=== PATIENT | male | born 1955 ===

== ENCOUNTER 2017-08-05 10:03 | Emergency (ER) | payer MEDICAID ==
[2017-08-05 10:04] VITALS: BMI 18.3
[2017-08-05 10:31] VITALS: BP 160/87; PULSE 68; RESP 18; TEMP 97.9; O2SAT 98
--- NOTE | 2017-08-05 11:20 | C.PDOC ---
History Of Present Illness 61 year old male, with PMHx of PVD and DVT, presents to ED for evaluation of sharp right foot pain, notes he has had this pain intermittently for the last 2 months, each episode lasting about 2 minutes but notes that pain lasted for longer duration last night. Patient was scheduled for stent to his right leg 2 days ago but did not have the surgery because according to patient, he was placed NPO for too long and therefore could not do it. Pt has history of 2 stents in the left leg. Pt admits to drinking alcohol today. Denies trauma or any new symptoms. Time Seen by Provider: 08/05/17 10:40 Chief Complaint (Nursing): Lower Extremity Problem/Injury History Per: Patient History/Exam Limitations: no limitations Onset/Duration Of Symptoms: Days (2 months), Intermittent Episodes Current Symptoms Are (Timing): Still Present Recent travel outside of the [place]: No Additional History Per: Patient Past Medical History Reviewed: Historical Data, Nursing Documentation, Vital Signs Vital Signs: Last Vital Signs Temp 97.9 F 08/05/17 10:30 Pulse 68 08/05/17 10:30 Resp 18 08/05/17 10:30 BP 160/87 H 08/05/17 10:30 Pulse Ox 98 08/05/17 12:50 - Medical History PMH: Bronchitis, Deep Vein Thrombosis (left leg), Fractures (left foot (CASTED ONLY)), Gastritis, HTN, Hypercholesterolemia, Pneumonia (x2 6-7 years ago) Denies: Chronic Kidney Disease Surgical History: Appendectomy, Tonsillectomy - [facility] Procedures ANGIOPLASTY OF OTHER NON-CORONARY VESSEL(S) (03/12/15) ATHERECTOMY OF OTHER NON-CORONARY VESSEL(S) (03/12/15) INSEJ [id number] PERIPHERAL NON-CORONARY VES STENT(S) (03/12/15) INSERTION OF ONE VASCULAR STENT (03/12/15) OTH & OPEN REPAIR DIRECT INGUINAL HERNIA W GRAFT OR PROSTH (10/04/13) PROCEDURE ON SINGLE VESSEL (03/12/15) Family History: States: Diabetes - Social History Hx Tobacco Use: Yes Hx Alcohol Use: Yes Hx Substance Use: Yes ("weed once in a while") - Immunization History Hx Tetanus Toxoid Vaccination: No Hx Influenza Vaccination: No Hx Pneumococcal Vaccination: No Review Of Systems Except As Marked, All Systems Reviewed And Found Negative. Constitutional: Negative for: Fever, Chills Cardiovascular: Negative for: Chest Pain, Palpitations Respiratory: Negative for: Shortness of Breath Musculoskeletal: Positive for: Foot Pain (right) Neurological: Negative for: Weakness, Numbness, Headache Physical Exam - Physical Exam Appears: Non-toxic, No Acute Distress Skin: Normal Color, Warm, Dry Head: Atraumatic, Normacephalic Eye(s): bilateral: Normal Inspection, EOMI Nose: Normal Oral Mucosa: Moist Neck: Supple Chest: Symmetrical Cardiovascular: Rhythm Regular Respiratory: No Accessory Muscle Use Extremity: Normal ROM (FROM of right leg), No Tenderness, No Pedal Edema, Capillary Refill (<2 secs.), No Deformity, No Swelling Extremity: Bilateral: Atraumatic, Normal Color And Temperature, Normal ROM Pulses: Left Dorsalis Pedis: Normal, Right Dorsalis Pedis: Normal Neurological/Psych: Oriented x3, Normal Speech, Normal Motor, Normal Sensation ED Course And Treatment O2 Sat by Pulse Oximetry: 98 (RA) Pulse Ox Interpretation: Normal Progress Note: Spoke with Dr. Castano who evaluated patient at bedside, instructed to discharge patient with outpatient follow up. Pt left from ER from prior to re-evaluation and discharge. Disposition - Disposition Referrals: Shaik Lima MD [Staff Provider] - Arnoldo Castano Jr., MD [Staff Provider] - Disposition: LEFT W/O BEING SEEN - ER ONLY Disposition Time: 11:19 Condition: STABLE Additional Instructions: Follow up with your primary medical doctor or clinic in 2-5 days for further evaluation. Return to the emergency department at any time if symptoms persist or worsen. Instructions: Peripheral Vascular Disease (ED) Forms: [facility] (Azeri) - Clinical Impression Clinical Impression: Peripheral vascular disease, Chronic leg pain - PA / MANAGER CL[facility] / Resident Statement MD/DO has reviewed & agrees with the documentation as recorded. - Scribe Statement The provider has reviewed the documentation as recorded by the Rolandoibe Colleen Wallace All medical record entries made by the Scribe were at my direction and personally dictated by me. I have reviewed the chart and agree that the record accurately reflects my personal performance of the history, physical exam, medical decision making, and the department course for this patient. I have also personally directed, reviewed, and agree with the discharge instructions and disposition.
== END 2017-08-05 11:45 | disposition left against medical advice (07) ==
LOC: C.ER 10:03
DX: I73.9 Peripheral vascular disease, unspecified (principal); G89.29 Other chronic pain; M79.604 Pain in right leg

== ENCOUNTER 2017-08-11 06:38 | Day surgery (SDC) | payer MEDICAID ==
[2017-07-27 09:10] VITALS: BMI 18.3
[2017-08-11] MEDS ORDERED: Midazolam 2 MG/2 ML VIAL ONE ×5 (07:16→09:54)
[2017-08-11] MEDS ORDERED: ePHEDrine 50 mg/ml Inj ONE (07:17)
[2017-08-11] MEDS ORDERED: Lidocaine 2% Inj (20ml) ONE (07:21)
[2017-08-11] MEDS ORDERED: Heparin 2,000 ML IV ONE (07:22)
[2017-08-11] MEDS ORDERED: Iodixanol 320 MG/ML 200 ML BOTTLE IV ONE (07:22)
[2017-08-11] MEDS ORDERED: Iodixanol 320 MG/ML 100 ML BOTTLE IV ONE ×2 (07:22→08:41)
--- NOTE | 2017-08-11 10:22 | PCM.SURG1 ---
Surgeon's Initial Post Op Note - Surgeon's Notes Surgeon: Omaira Cigar Packer And Grader: Suzan PGY3 Type of Anesthesia: IV Sedation, Local Pre-Operative Diagnosis: RLE PVD Operative Findings: stenosis of R SFA Post-Operative Diagnosis: same Operation Performed: 1. aorto-femoral angiogram w. selective catherization of R SFA via L groin w. arthrectomy and balloon angioplasty. 2. Aorto-femoral angiogram w. selective catherization of L SUBSTATION MANAGER via R groin w. balloon angioplasty Specimen/Specimens Removed: none Estimated Blood Loss: EBL {In ML}: 25 Blood Products Given: N/A Drains Used: No Drains Post-Op Condition: Good Date of Surgery/Procedure: 08/11/17 Time of Surgery/Procedure: 10:23
--- NOTE | 2017-08-12 08:30 | VAS ---
DATE: 08/11/2017 PREOPERATIVE DIAGNOSES: Claudication pain right leg. PROCEDURE CARRIED OUT: Aortofemoral angiogram via left groin, selective catheterization of right femoral artery, pathway atherectomy of the right superficial femoral artery and balloon angioplasty with a 5 mm drug-coated balloon. Subsequently, the patient had another angiogram via the right groin with selective catheterization of the left femoral artery and balloon angioplasty using a 4 mm, 5 mm and eventually 6 mm drug-coated balloon of the left common femoral artery for loss of pulse. At the end of the procedure, the patient had palpable pulses in both feet. PROCEDURE AND FINDINGS: The patient was given local anesthesia. Using ultrasound guidance, the left common femoral artery was punctured, under fluoroscopic control the guidewire was advanced centrally. Eventually, we placed an Omniflush catheter at the level of the renal arteries and carried out an angiogram from this level down with overlapping films. Subsequent to the performance of diagnostic arteriogram, a stiff-angled guidewire was advanced from the aortic bifurcation and the sheath placed in the proximal superficial femoral artery. Additional selective films were taken as well as the procedure carried out. Subsequent to this, we had problems in the left groin where we lost the pulse after the deployment of the Perclose device. We then punctured the right groin over the aortic bifurcation again, I placed a catheter in the external iliac artery, and placed a sheath in the distal external oblique artery, crossed this with a Glidewire, eventually placed a Angelo wire here, re-heparinized the patient and progressively dilated this with 4 and 5 and then eventually 6 mm drug-coated balloon with excellent results and restitution of the pulse. FINDINGS: The aorta and renal arteries are free of significant occlusive disease. There is an accessory renal artery on the right side. The common iliac, internal iliac, and external iliac arteries were widely patent, although there was some narrowing in the external iliac artery on the left side, and some subsequent atherosclerosis in the groin. Eventually, we were able to cross the lesion on the right. Carried out a pathway atherectomy using a 2.4 mm device and then dilated this with a balloon. Cosmetic results were excellent and the procedure was terminated. We took films on the way out of the left groin and deployed a Perclose device, which resulted in occlusion of the artery. We then punctured the right side, placed a sheath catheter over the aortic bifurcation. We found a small area of significant narrowing, which we dilated initially with a 4 mm, 5 mm, and then a 6 mm balloon. The final cosmetic results were excellent with brisk flow and restitution of pulse and no cosmetic defects. Pressure was then reapplied to the right groin and the procedure was terminated. So the operation carried out, it is aortofemoral angiogram with selectively catheterization, right femoral artery via left groin. Pathway atherectomy of the right superficial femoral artery and drug-coated balloon. then an aortofemoral angiogram with selective catheterization on the left side and a balloon angioplasty using 4 mm, 5 mm and 6 mm balloon in the left common femoral artery. The patient's condition was excellent. Palpable pulses in both feet at the end of the procedure. Arnoldo Castano Jr., MD ANEUDY
[2017-08-12 15:57] VITALS: RESP 18; O2SAT 100
== END 2017-08-11 17:00 | disposition home or self-care (01) ==
LOC: C.SPRAD 06:38
PROVIDERS: ATTEND Surgery Vascular Surgery
DX: I70.202 Unspecified atherosclerosis of native arteries of extremities, left leg (principal); I70.211 Atherosclerosis of native arteries of extremities with intermittent claudication, right leg; I10 Essential (primary) hypertension; E78.5 Hyperlipidemia, unspecified; N40.0 Benign prostatic hyperplasia without lower urinary tract symptoms
CPT/HCPCS: 0235T; 37246; 37247; 94770; J1644; J2250; J3010; Q9966; Q9967